=== PATIENT | male | born 1975 | race Caucasian/White ===

== ENCOUNTER → 2022-03-17 | Outpatient (CLI) | payer OTHER, SELFPAY ==
[2022-03-17 11:24] LABS: Anion Gap 6 (5-15); BUN 16 mg/dL (7-18); BUN/Creat Ratio 15.1 RATIO (10-20); Chloride 105 mmol/L (98-107); Cholesterol 237 mg/dL (200); Creatinine, Serum 1.06 mg/dL (0.70-1.30); EST Glomerular Filtration Rate 80 mL/min (>60); Est Glom Filt Rate - Afr Amer 96 mL/min (>60); Glucose 97 mg/dL (74-106); High Density Lipoprotein 99 mg/dL; Sodium Level 139 mmol/L (136-145); Triglycerides 60 mg/dL; Very Low Density Lipoprotein 12 mg/dL (5-40)
== END | disposition home or self-care (01) ==
LOC: MFPLAB 08:16
PROVIDERS: Family Medicine; Visit Provider Family Medicine
DX: I10 Essential (primary) hypertension (principal)
CPT/HCPCS: 36415; 80048; 80061

== ENCOUNTER 2023-12-30 07:27 | Emergency (ER) | payer OTHER, SELFPAY ==
[2023-12-30] VITALS (10 sets, daily range): BP systolic 143–166; BP diastolic 96–108; PULSE 92–117; RESP 14–18; TEMP 35.6; O2SAT 90–99; BMI 29.0
--- NOTE | 2023-12-30 07:37 | EX.ED.GENINJ ---
HPI History of Present Illness Chief Complaint: Disclocation Informant: patient Narrative Narrative: 48-year-old healthy male presenting to the emergency room with left shoulder pain. Patient states that he was fishing last night and went to push-up off the dock in a push-up like manner when he felt something pop in his left shoulder. He states that it hurt but he was able to go home. He states that he has significant pain when he AB ducts the arm. Limited range of motion. He is left-handed. Denies any other injuries. No prior injury/trauma to the shoulder. PFSH PFSH Medical History no medical history Home Medications ?Medication ?Instructions ?Recorded ?Last Taken ?Type hydrocodone-acetaminophen 5-325mg 1 tab PO Q6H PRN PRN Pain 3 days 12/30/23 Unknown Rx 5mg-325mg #10 TABLETS Allergy/AdvReac Type Severity Reaction Status Date / Time No Known Allergies Allergy Verified 12/30/23 07:29 Surgical History no surgical history Social History Smoking Status: Never smoker ROS ROS ED Constitutional Constitutional ED: Denies chills, fever(s) or weight loss Eyes Eyes: Denies change in vision or diplopia ENT ENT ED: Denies ear pain, rhinorrhea or sore throat Cardiovascular Cardiovascular: Denies chest pain, orthopnea, palpitations or racing heartbeat Respiratory/Chest Respiratory/Chest: Denies cough, dyspnea or orthopnea Gastrointestinal Gastrointestinal: Denies abdominal pain, diarrhea, nausea or vomiting Genitourinary Genitourinary ED: Denies dysuria, hematuria or urinary frequency Musculoskeletal Musculoskeletal: Reports other Details: See history of present illness. No distal hand symptoms/swelling ; Denies arthralgias or myalgias Integumentary Denies abscess or rash Neurologic Neurologic: Denies headache(s), paresthesias or weakness Psychiatric Psychiatric: Denies anxiety, depression, suicidal ideation or suicidal thoughts Endocrine Endocrinology: Denies polydipsia, polyphagia or polyuria Allergic/Immunologic Allergic/Immunologic ED: Denies mouth swelling, tongue swelling or urticaria EXAM Physical Exam Const Vital Signs: 12/30/23 07:28 12/30/23 07:35 12/30/23 08:35 Temperature 96.1 F L Temperature Source Temporal Pulse Rate 108 H 104 H 92 Pulse Rate [1 (Initial Baseline)] Pulse Rate [2] Pulse Rate [3] Respiratory Rate 18 16 16 Respiratory Rate [1 (Initial Baseline)] Respiratory Rate [2] Respiratory Rate [3] Blood Pressure 160/100 H 164/102 H Blood Pressure [1 (Initial Baseline)] Blood Pressure [2] Blood Pressure [3] Blood Pressure Mean 120 122 Pulse Ox 99 99 92 Oxygen Delivery Method Room Air Room Air Room Air Oxygen Delivery Method [1 (Initial Baseline)] Oxygen Delivery Method [2] Oxygen Delivery Method [3] Oxygen Flow Rate (L/min) Oxygen Flow Rate (L/min) [2] Oxygen Flow Rate (L/min) [3] 12/30/23 09:06 12/30/23 09:06 12/30/23 09:15 Temperature Temperature Source Pulse Rate 111 H Pulse Rate [1 (Initial Baseline)] 117 H Pulse Rate [2] 108 H Pulse Rate [3] 100 Respiratory Rate 16 Respiratory Rate [1 (Initial Baseline)] 16 Respiratory Rate [2] 14 Respiratory Rate [3] 16 Blood Pressure 166/108 H Blood Pressure [1 (Initial Baseline)] 166/108 H Blood Pressure [2] 151/96 H Blood Pressure [3] 151/96 H Blood Pressure Mean Pulse Ox 96 Oxygen Delivery Method Room Air Nasal Cannula Oxygen Delivery Method [1 (Initial Baseline)] Room Air Oxygen Delivery Method [2] Nasal Cannula Oxygen Delivery Method [3] Nasal Cannula Oxygen Flow Rate (L/min) 4 Oxygen Flow Rate (L/min) [2] 2 Oxygen Flow Rate (L/min) [3] 4 12/30/23 09:20 12/30/23 09:25 12/30/23 09:30 Temperature Temperature Source Pulse Rate Pulse Rate [1 (Initial Baseline)] Pulse Rate [2] Pulse Rate [3] Respiratory Rate Respiratory Rate [1 (Initial Baseline)] Respiratory Rate [2] Respiratory Rate [3] Blood Pressure Blood Pressure [1 (Initial Baseline)] Blood Pressure [2] Blood Pressure [3] Blood Pressure Mean Pulse Ox Oxygen Delivery Method Nasal Cannula Room Air Room Air Oxygen Delivery Method [1 (Initial Baseline)] Oxygen Delivery Method [2] Oxygen Delivery Method [3] Oxygen Flow Rate (L/min) 2 0 Oxygen Flow Rate (L/min) [2] Oxygen Flow Rate (L/min) [3] 12/30/23 09:35 Temperature Temperature Source Pulse Rate Pulse Rate [1 (Initial Baseline)] Pulse Rate [2] Pulse Rate [3] Respiratory Rate Respiratory Rate [1 (Initial Baseline)] Respiratory Rate [2] Respiratory Rate [3] Blood Pressure Blood Pressure [1 (Initial Baseline)] Blood Pressure [2] Blood Pressure [3] Blood Pressure Mean Pulse Ox Oxygen Delivery Method Room Air Oxygen Delivery Method [1 (Initial Baseline)] Oxygen Delivery Method [2] Oxygen Delivery Method [3] Oxygen Flow Rate (L/min) Oxygen Flow Rate (L/min) [2] Oxygen Flow Rate (L/min) [3] Positive well nourished and well developed General Appearance ED: well developed HEENT Reports normocephalic, head/scalp atraumatic and moist mucous membranes Eyes PERRL and EOMs intact bilaterally Neck no lymphadenopathy, supple and no JVD Resp normal respiratory effort and clear to auscultation bilaterally Cardio regular rate, regular rhythm and no murmurs GI normal to inspection, nondistended, normoactive bowel sounds and non-tender Palpation: soft Back/Spine no CVA tenderness and normal ROM Extremity Extremity Narrative: Limited range of motion left shoulder. Significant pain with abduction attempt. Empty sulcus sign. Distal hand appears normal. No significant swelling. His wedding ring is easily removed. Neurovascular intact. General Extremety ED: Negative for edema General Extremity: Negative for edema Neuro oriented x3 and CN's II-XII intact bilaterally Sensorium / Orientation: alert Motor Exam: strength 5/5 throughout Psych mental status grossly normal Mood & Affect: Negative for depressed or tearful Skin no rashes or lesions noted and no wounds PROC Procedures Procedural Sedation 1 (Initial Baseline): Consent Signed: Yes Any Problems With Anesthesia: No You/Your family experience fever (hyperthermia) w/anesthesia: No Sedation medication: Propofol Dose: 200 Total Moderate Sedation Units: 7 Maliampati Score: Class I ASA Classification: I MDM MDM MDM Narrative Medical decision making narrative: Differential diagnosis includes but not limited to fracture dislocation rotator cuff injury sprain strain My independent interpretation of the plain films of the left shoulder is an acute inferior anterior shoulder dislocation without obvious fracture. Patient last had banana and coffee this morning prior to arrival in the emergency department. He provided informed written consent for the use of propofol for procedural sedation for closed reduction. Patient was placed on the monitor given supplemental oxygen in the standard hospital protocol. A 1 mg/kg bolus of propofol was given followed by 0.5 mg/kg aliquots to achieve adequate sedation. Once adequate sedation was achieved the shoulder was easily reduced using traction countertraction and the Milch technique. My independent interpretation of the postprocedural films is adequate reduction of the dislocation. Patient was placed in sling and swath. He recovered from sedation without significance. Patient will be encouraged to have limited range of motion of the shoulder and to stay in the sling and swath until seen by orthopedics. Dr. Mcallister and is on for orthopedics today. History & Record Review Discussion w/independent historian: Patient Radiography Diagnostic Testing: Clinical Impression(s) from Imaging Studies Shoulder X-Ray 12/30/23 07:40 IMPRESSION: Anterior inferior dislocation of the glenohumeral joint. Electronically Signed: Ford Larsen MD at 8:12 EDT , Discharge Plan Triage Chief Complaint: Disclocation ED Provider: Stanton Kebede Dx/Rx/DC Orders Clinical Impression: Fall, Anterior dislocation of left shoulder Instructions: ED Dislocation: Shoulder (Reduced) Prescriptions: New hydrocodone-acetaminophen 5-325 mg tablet 1 tab PO Q6H PRN PRN (Reason: Pain) 3 Days Qty: 10 0RF Primary Care Provider: Hossein Fuentes Referrals: Hossein Fuentes MD [Primary Care Provider] - Sachin Greene MD [Med Staff - Active Staff] - As soon as possible Activity Restrictions/Additional Instructions: Please utilize the sling and swath. Very little range of motion of the shoulder until seen by orthopedics. I recommend icing and 20-minute sessions as needed for pain and swelling. When you go to shower or change try to keep the arm close to the chest to limit range of motion. You may find that utilizing button-down shirts is easiest for getting dressed. If any concerns or worsening please return to emergency. Print Language: Tamazight Disposition Disposition: Home, Self Care
--- NOTE | 2023-12-30 07:40 | RAD_ITS ---
STUDY: X-RAY - LEFT SHOULDER REASON FOR EXAM: Male, 48 years old. Injury TECHNIQUE: 4 view(s) of the shoulder. COMPARISON: None. FINDINGS: Anterior-inferior dislocation of the left glenohumeral joint Normal acromioclavicular joint. Normal acromion. Normal humeral head and visualized proximal humerus. The soft tissue structures are unremarkable. Normal visualized pulmonary apex. RAD/Shoulder min 2 Views IMPRESSION: Anterior inferior dislocation of the glenohumeral joint. Electronically Signed: Ford Larsen MD at 8:12 EDT ,
[2023-12-30] MEDS: Ondansetron 4 MG/2 ML Vial IV (08:33)
[2023-12-30] MEDS: fentaNYL 100 MCG/2 ML Ampul 50 MCG IV (08:33)
--- NOTE | 2023-12-30 09:45 | RAD_ITS ---
STUDY: X-RAY - LEFT SHOULDER REASON FOR EXAM: Male, 48 years old. Reduction TECHNIQUE: 2 view(s) of the shoulder. COMPARISON: Comparison is made with prior study done earlier today FINDINGS: Satisfactory reduction of the glenohumeral joint. Normal acromioclavicular joint. Normal acromion. Normal humeral head and visualized proximal humerus. The soft tissue structures are unremarkable. Normal visualized pulmonary apex. RAD/Shoulder min 2 Views IMPRESSION: There is reduction of the glenohumeral joint. Electronically Signed: Ford Larsen MD at 10:00 EDT ,
== END 2023-12-30 10:18 | disposition home or self-care (01) ==
PROVIDERS: Emergency Provider Emergency Medicine; PCP Family Medicine; Visit Provider Emergency Medicine
DX: S43.015A Anterior dislocation of left humerus, initial encounter (principal); X58.XXXA Exposure to other specified factors, initial encounter
CPT/HCPCS: 73030; 96374; 96375; 99284; A4216; J2405

== ENCOUNTER → 2024-01-11 | Outpatient (CLI) | payer OTHER, SELFPAY ==
--- NOTE | 2024-01-11 06:33 | MRI_ITS ---
STUDY: MRI LEFT SHOULDER REASON FOR EXAM: Male, 48 years old. Instability episode left shoulder. TECHNIQUE: Standardized fat and water weighted pulse sequences were obtained in all 3 orthogonal planes. COMPARISON: Left shoulder radiographs dated 12/30/2023. FINDINGS: Normal supraspinatus tendon. Normal infraspinatus tendon. Normal subscapularis tendon. Normal teres minor tendon. Normal supraspinatus muscle. Normal infraspinatus muscle. Normal subscapularis muscle. Normal teres minor muscle. There is a Hill-Sachs deformity of the posterior superior humeral head with underlying subcortical marrow edema. There is tearing of the anterior-inferior glenoid labrum with capsuloperiosteal stripping as well as small fracture of the anterior-inferior glenoid rim, compatible with a bony Bankart lesion. There is a moderate glenohumeral joint effusion with debris or loose body formation in the axillary recess. Normal biceps labral complex. Normal intracapsular long biceps tendon. Normal rotator interval. Normal acromioclavicular articulation. There is a Type II morphology (curved), with a neutral orientation. There is no subacromial-subdeltoid bursal fluid. Normal visualized coracohumeral and coracoacromial ligaments. Normal quadrilateral space. Normal axillary space. Normal deltoid muscle. Normal trapezius muscle. MRI/Upper Ext Joint Only(Routine) IMPRESSION: Hill-Sachs deformity of the posterior superior humeral head with underlying subcortical marrow edema. Tearing of the anterior-inferior glenoid labrum with capsuloperiosteal stripping as well as small fracture of the anterior-inferior glenoid rim, compatible with a bony Bankart lesion. Moderate glenohumeral joint effusion with debris or loose body formation in the axillary recess. No rotator cuff tear. Electronically Signed: Omi Anton MD at 8:10 EDT ,
== END | disposition home or self-care (01) ==
PROVIDERS: PCP Family Medicine; Referring Provider Orthopaedic Surgery Sports Medicine; Visit Provider Orthopaedic Surgery Sports Medicine
DX: S43.015A Anterior dislocation of left humerus, initial encounter (principal); X58.XXXA Exposure to other specified factors, initial encounter
CPT/HCPCS: 73221

== ENCOUNTER 2024-02-24 07:30 | Outpatient (RCR) | payer OTHER, SELFPAY ==
--- NOTE | 2024-01-29 18:11 | HP.PTEVAL_ITS ---
Patient's Visit Information Visit Information Visit Information: ZANE WEIR is a 48 year old M referred to Physical Therapy by Dr. Sachin Price MD with a diagnosis of ANTERIOR DISLOCATION L SHLD. Date of Evaluation: 01/29/24 Physical Therapist: Minerva Wilkins PT, Cert MDT Visit Plan Frequency: 2-3x /Week Duration: 4-6 Weeks Plan: *NO PASSIVE ROM* 1. ACTIVE AND ACTIVE ASSISTIVE ROM EX INSTRUCTION TO HELP PATIENT RESTORE FULL ROM WITHIN COMFORTABLE ROM FOR PATIENT. 2. BEGIN STRENGTHENING WITH SUBMAX ISOMETRICS. 3. SLOW PROGRESSIVE RESISTIVE STRENGTHENING BELOW 90 DEG INCLUDING SCAP STRENGTH/STABILIZATION 4. POSTURE TRAINING/STRENGTHENING FOCUS ON HEP INSTRUCTION. 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 Present symptoms: INTERMITTENT L ANTERIOR SHLD PAIN/ACHE (L HAND DOMINANT). Present since: 12/29/23 Pain Scale: WORST 5/10, LEAST 0/10 Currently: 0/10 Commenced as a result of: PUSHING ON THE DECK OF A BOAT TO LIFT BODY WEIGHT+ UP AT A WEIRD ANGLE AND FELT A POP IN L SHLD AND A LOT OF PAIN. WENT TO ED NEXT MORNING. Worse: REACHING BEHIND BACK, REACHING BACK, WASHING UNDER OPPOSITE ARM. Better: NOT MOVING IT STOPS THE PAIN. Disturbed sleep: YES - WRAPING ARM AROUND SIDE TO AVOID PUTTING ARM OVER HEAD IN SLEEP. Previous history/Previous treatment: ABOUT 20 YEARS AGO FELL OFF 4 VIVAS POSSIBLY DISLOCATED L SHLD AND ABOUT 4-5 YEARS AGO ALSO JERKED L SHLD ON TRUCK STEERING WHEELING RESULTING IN PAIN. This episode: MANIPULATION IN [facility] ED DAY AFTER INJURY THEN FOLLOW UP WITH DR. PRICE AND MRI WITH PT BEING RECOMMENDED. Dizziness: NO Tinnitus: NO Nausea: NO Shortness of Breath: NO Difficulty Swollowing: NO Gait: NORMAL Accidents: UNREMARKABLE (OTHER THAN ABOVE) Unexplained weight loss: NO Imaging: L SHLD MRI 01/23/24: Hill-Sachs deformity of the posterior superior humeral head with underlying subcortical marrow edema. Tearing of the anterior-inferior glenoid labrum with capsuloperiosteal stripping as well as small fracture of the anterior-inferior glenoid rim, compatible with a bony Bankart lesion. Moderate glenohumeral joint effusion with debris or loose body formation in the axillary recess. No rotator cuff tear. 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 Objective Objective: THIS PATIENT AMBULATES INDEP'LY INTO PT WITH NO GROSS DEVIATIONS NOTED. HE IS NOT WEARING A SLING OR ANY OTHER DEVICE ON THE L UE. POSTURE: MILD FH AND RSH'S. NEURO: INTACT. CERVICAL ROM: WFL ALL PLANES. R UE (UNINVOLVED) ROM AND STRENGTH: WFL. LUE (INVOLVED AND DOMINANT HAND) ROM: STANDING ACTIVE FLEXION 143 DEG, ABD 104 DEG, EXTENSION 48 DEG, SUPINE ER 31 DEG (W/60 DEG ABD), SUPINE IR 65 DEG (W/60 DEG ABD). PATIENT C/O PAIN WITH ROM TESTING ALL PLANES L UE. PASSIVE ROM NT. L UE STRENGTH: L SHLD FLEX 3-/5, ABD 2+/5, IR 3-/5, ER 2/5, ELBOW FLEX 3+/5, ELBOW EXT 4/5. R EQUITIES ANALYST 96 LBS, L 91 LBS. NO ACUTE L SHLD TENDERNESS. TREATMENT: INSTRUCTED PATIENT IN VERY GENTLE TABLE WALK AWAYS INTO SHOULDER FLEXION IN COMFORTABLE ROM ONLY. ALSO INSTRUCTED PATIENT IN SUBMAX SHLD ISOMETRICS ALL PLANES WITH PILLOW AGAINST THE WALL AND IN DOORWAY WITH ELBOW AT SIDE - WRITTEN HEP INSTRUCTIONS PROVIDED. OTHER (This was reviewed with patient): Physician Restrictions - Dr. Price's Ortho note from [facility] EMR states patient should start doing some strengthening and gentle range of motion exercises while avoiding pushing pulling or dangerous positions of instability o r sports or other high risk situations as this can happen again with higher frequency in the first 6 weeks after the injury - PATIENT DEMONSTRATES/COMMUNICATES A GOOD UNDERSTANDING OF ALL INSTRUCTIONS AFTER GIVEN. Balance/Special Test Scores Quick DASH Score: 25.0000 Goals Goal 1:: RESTORE FULL L UE AROM TO IMPROVE ADL FUNCTION Goal Time Frame: 2-4 Weeks Goal 2:: IMPROVE L UE STRENGTH TO HELP PATIENT RETURN TO PRIOR LEVEL OF FUNCTION. Goal Time Frame: 4-6 Weeks Goal 3:: PATIENT WILL HAVE AT LEAST 5 POINT IMPROVEMENT ON THE QUICK DASH QUESTIONNAIRE Goal Time Frame: 4-6 Weeks Goal 4:: PATIENT WILL BE INDEP WITH A HEP FOR CONTINUED IMPROVEMENT ONCE FORMAL PHYSICAL THERAPY CONCLUDES. Goal Time Frame: 4-6 Weeks Rehabilitation Potential Physical Therapy Diagnosis: LEFT UE WEAKNESS AND TIGHTNESS. Rehabilitation Potential: Good Anticipated Interventions Patient/Client Instruction: Educate patient on: Condition, Plan of Care and Risk Factors For the Purpose of:: To improve self management Therapeutic Exercise to Include: Strength training, Postural training, Flexibilty training, Neuromotor development and Scapular Strength/Stabilization For the Purpose of:: To decrease pain, To increase ROM, To improve muscle performance and motor function, To increase tolerance to activity/condition/position, To improve ability of physical actions for home/community/work/leisure, To increase flexibility/ROM and To improve self management TENS: Yes IF ES: Yes Cryotherapy (ice pack, ice massage): Yes Thermo therapy (hot pack): Yes Ultrasound (thermal/non thermal): Yes For the Purpose of:: To decrease pain, To decrease swelling/inflammation and To improve nutrient delivery to tissue Text: Thank you for the opportunity to evaluate your patient. For Medicare and Medicare HMO plans, please review the plan of care and approve it. It will need to be FAXED BACK to us at [phone] for Medicare purposes. For Medicare only, by signing this I certify the plan of care. Please let me know if there are questions or concerns regarding this plan of care. Physician Signature: Date:
== END 2024-02-24 19:00 | disposition home or self-care (01) ==
LOC: PT 07:30
PROVIDERS: PCP Family Medicine; Referring Provider Orthopaedic Surgery Sports Medicine; Visit Provider Orthopaedic Surgery Sports Medicine
DX: S43.015D Anterior dislocation of left humerus, subsequent encounter (principal)
CPT/HCPCS: 97110; 97162; 97530